=== PATIENT | female | born 1990 ===

== ENCOUNTER 2016-06-20 20:59 | Observation (INO) | payer MEDICAID, OTHER ==
[2016-06-20 21:15] VITALS: BMI 26.5
[2016-06-20] MEDS ORDERED: Sodium Chloride 0.9% 1,000 ML IV STA (21:25)
--- NOTE | 2016-06-20 21:29 | ED PDOC ---
HPI: Abdomen Time Seen by Provider: 06/20/16 21:18 Chief Complaint (Nursing): Abdominal Pain Chief Complaint (Provider): abdominal pain History Per: Patient History/Exam Limitations: no limitations Onset/Duration Of Symptoms: Days (1 week) Current Symptoms Are (Timing): Still Present Location Of Pain/Discomfort: Epigastric Associated Symptoms: Nausea, Vomiting Additional History Per: Patient Additional Complaint(s): 25 y/o female history of asthma, gastritis presents with abdominal pain x 1 week. Associated nausea/vomiting. Patient states symptoms worsened today after trying to eat dumplings at work, which prompted ED visit. Denies fever, chest pain, shortness of breath, palpitations, changes in bowel movements, vaginal bleeding/discharge, dysuria, hematuria. LMP 1 week ago. Past Medical History Reviewed: Historical Data, Nursing Documentation, Vital Signs Vital Signs: Last Vital Signs Temp 99.6 F 06/21/16 05:37 Pulse 115 H 06/21/16 05:37 Resp 16 06/21/16 05:37 BP 119/78 06/21/16 05:37 Pulse Ox 100 06/21/16 05:49 - Medical History PMH: Anxiety, Depression, Gastritis Denies: Diabetes, Hepatitis, HIV, HTN, Chronic Kidney Disease, Seizures, Sexually Transmitted Disease - Surgical History Surgical History: No Surg Hx - Family History Family History: States: Unknown Family Hx - Home Medications Home Medications: Ambulatory Orders Medication Instructions Recorded Cyclobenzaprine [Flexeril] 5 mg PO TID PRN #30 tab 06/16/15 Mirtazapine [Remeron] 15 mg PO HS #30 tab 06/16/15 DiphenhydrAMINE [Benadryl] 25 mg PO Q4H #20 cap 07/09/15 Prednisone 20 mg PO BID #8 tablet 07/09/15 - Allergies Allergies/Adverse Reactions: Allergies Allergy/AdvReac Type Severity Reaction Status Date / Time apple Allergy SWELLING Verified 06/20/16 21:14 avocado Allergy RASH Verified 06/20/16 21:14 Review of Systems ROS Statement: Except As Marked, All Systems Reviewed And Found Negative Gastrointestinal: Positive for: Nausea, Vomiting, Abdominal Pain Physical Exam - Reviewed Nursing Documentation Reviewed: Yes Vital Signs Reviewed: Yes - Physical Exam Appears: Positive for: Well, Non-toxic, Uncomfortable (hypervenitallting, crying ) Skin: Positive for: Normal Color Eye Exam: Positive for: Normal appearance ENT: Positive for: Normal ENT Inspection Cardiovascular/Chest: Positive for: Regular Rate, Rhythm Respiratory: Positive for: Normal Breath Sounds Gastrointestinal/Abdominal: Positive for: Bowel Sounds, Soft, Tenderness ( diffuse; worse epigastric). Negative for: Rebound Pelvic Exam: Positive for: External Exam Normal, No Cerv. Motion Tender. Negative for: Active Bleeding Back: Positive for: Normal Inspection Extremity: Positive for: Normal ROM Neurologic/Psych: Positive for: Alert, Oriented - Laboratory Results Result Diagrams: 06/20/16 21:40 06/20/16 21:40 - ECG ECG: Positive for: Viewed By Me (reviewed by ED attending) ECG Rhythm: Positive for: Sinus Tachycardia O2 Sat by Pulse Oximetry: 100 Pulse Ox Interpretation: Normal - Radiology X-Ray: Viewed By Me X-Ray Interpretation: No Acute Disease - Progress ED Course And Treament: labs, urine, CT abd/pelvis, IV fluids, IV zofran, IV pepcid IV ativan given for anxious EXAM: CT Abdomen and Pelvis With Intravenous Contrast CLINICAL HISTORY: The patient is a 25 years female; Pain; Abdominal pain; Generalized; Additional info: Abd pain, vomiting 06/20/2016 11:22 PM TECHNIQUE: Axial computed tomography images of the abdomen and pelvis with intravenous contrast. This CT exam was performed using one or more of the following dose reduction techniques : automated exposure control, adjustment of the mA and/or kV according to patient size, and/ or use of iterative reconstruction technique. Coronal and sagittal reformatted images were created and reviewed. CONTRAST: 90 mL of [id number] administered intravenously. COMPARISON: CT ABD 01/06/2013 5:40:00 PM FINDINGS: Lower thorax: <No significant pleural effusions.> ABDOMEN: Liver: Unremarkable. No mass. Gallbladder and bile ducts: Unremarkable. No calcified stones. No ductal dilation. Pancreas: Unremarkable. No ductal dilation. Spleen: Unremarkable. No splenomegaly. Adrenals: Unremarkable. No mass. Kidneys and ureters: Unremarkable. No solid mass. No hydronephrosis. Stomach and bowel: Unremarkable. No dilated bowel loops. Appendix: No findings to suggest acute appendicitis. PELVIS: Bladder: Urinary bladder is partially contracted with apparent wall thickening, probably exaggerated by under distention. Correlate for possible cystitis. Reproductive: 4.8 cm complex appearing right adnexal lesion/ovary. Correlate with pelvic ultrasound. ABDOMEN and PELVIS: Intraperitoneal space: Unremarkable. No free air. No significant fluid collection. Bones/joints: No acute fracture. No dislocation. Soft tissues: Unremarkable. Vasculature: Unremarkable. No abdominal aortic aneurysm. Lymph nodes: Unremarkable. No enlarged lymph nodes. IMPRESSION: 1. 4.8 cm complex appearing right adnexal lesion/ovary. Correlate with pelvic ultrasound. 2. Urinary bladder is partially contracted with apparent wall thickening, probably exaggerated by under distention. Correlate for possible cystitis. EXAM: US Pelvis, Transvaginal CLINICAL HISTORY: 25 years old, female; Pain; Abdominal pain; Lower abdomen; Additional info: Dx: Abdominal pain R/O torsion TECHNIQUE: Real-time transvaginal pelvic ultrasound (complete) with image documentation. Transvaginal imaging was used for better evaluation of the endometrium and adnexa. COMPARISON: CT - ABD PELVIS PO IV CON 06/21/2016 1:27:22 AM FINDINGS: Uterus/cervix: 1.3 x 1.3 x 0.6 cm heterogeneous area in the endometrial canal with small echogenic foci noted. The appearance is nonspecific. No abnormal blood flow in the endometrial canal. Endometrial stripe measures 8 mm in thickness. Right ovary: Unremarkable. No mass. Normal blood flow. Left ovary: Unremarkable. No mass. Normal blood flow. Free fluid: No free fluid. IMPRESSION: 1.3 x 1.3 x 0.6 cm heterogeneous area in the endometrial canal with small echogenic foci noted. The appearance is nonspecific. No abnormal blood flow in the endometrial canal. Ultrasound followup could be obtained if indicated. Thank you for allowing us to participate in the care of your patient Patient vomited after u/s; IV zofran, IV fluids 5:40 Patient still with nausea. HR 115 after IV fluid boluses and IV ativan given. Case discussed with Dr. Amezcua for placement in observation status for IV hydration, requesting GI consult with Dr. Arciniega. Disposition - Clinical Impression Clinical Impression: Intractable nausea and vomiting, Tachycardia, Dehydration - Disposition Disposition Time: 06:00 Condition: FAIR
[2016-06-20 21:43] LABS: BASO % 0.2 % (0.0-2.0); EOS # 0.1 K/uL (0.0-0.7); EOS % 0.4 % (0.0-4.0); HEMATOCRIT 44.8 % (34.0-47.0); LYMPH # 0.6 K/uL (1.0-4.3); LYMPH % 4.6 % (20.0-40.0); MEAN CELL VOLUME 90.4 fl (81.0-99.0); MEAN CORPUSCULAR HEMOGLOBIN 30.2 pg (27.0-31.0); MEAN CORPUSCULAR HGB CONC 33.3 g/dL (33.0-37.0); MEAN PLATELET VOLUME 7.7 fl (7.2-11.7); MONO # 0.3 K/uL (0.0-0.8); MONO % 2.4 % (0.0-10.0); NEUT # 12.2 K/uL (1.8-7.0); NEUT % 92.4 % (50.0-75.0); PLATELET COUNT 294 K/uL (130-400); RED CELL DISTRIBUTION WIDTH 13.4 % (11.5-14.5); WHITE BLOOD COUNT 13.3 K/uL (4.8-10.8)
[2016-06-20 21:55] LABS: ALKALINE PHOSPHATASE 83 U/L (38-126); ALT/SGPT 31 U/L (9-52); AST/SGOT 30 U/L (14-36); BILIRUBIN,TOTAL 0.6 mg/dl (0.2-1.3); BLOOD UREA NITROGEN 14 mg/dl (7-17); CALCIUM 10.2 mg/dL (8.4-10.2); CARBON DIOXIDE 21 mmol/L (22-30); CHLORIDE 102 mmol/L (98-107); GFR AFRICAN-AMERICAN > 60; GLUCOSE,RANDOM 112 mg/dL (65-105); LIPASE 37 U/L (23-300); POTASSIUM 4.3 MMOL/L (3.6-5.0); SODIUM 141 mmol/l (132-148); TOTAL PROTEIN 8.7 G/DL (6.3-8.2)
[2016-06-20 21:56] LABS: ALB/GLOB RATIO 1.4 (1.0-2.1)
[2016-06-20 22:26] LABS: NEUTROPHIL 88 % (42-75); TOTAL CELLS COUNTED 100
[2016-06-20] MEDS ORDERED: Iohexol 240 (50 ml) PO ONE (23:22)
[2016-06-21] MEDS ORDERED: Sodium Chloride 0.9% 50 ML IV ONE (01:09)
[2016-06-21] MEDS ORDERED: Iohexol 300 100 ML IJ ONE (01:09)
[2016-06-21 03:43] LABS: URINE BILIRUBIN NEGATIVE (NEGATIVE); URINE BLOOD NEGATIVE (NEGATIVE); URINE COLOR YELLOW (YELLOW); URINE GLUCOSE (UA) NEGATIVE (Normal); URINE KETONE 80 mg/dL (NEGATIVE); URINE PROTEIN NEGATIVE (NEGATIVE)
[2016-06-21 03:44] LABS: RBC URINE 4 /hpf (0-3); URINE LEUKOCYTE ESTERASE NEGATIVE Leu/uL (Negative); URINE UROBILINOGEN 0.2 mg/dL (0.2-1.0); WBC URINE 1 /hpf (0-5)
[2016-06-21] MEDS ORDERED: Sodium Chloride 0.9% 1,000 ML IV STA (04:08)
[2016-06-21 06:06] LABS: VENOUS BLOOD GAS BASE EXCESS -10.4 mmol/L (0.0-2.0); VENOUS BLOOD GAS PCO2 50 mmHg (40-60); VENOUS BLOOD PH 7.17 (7.32-7.43)
--- NOTE | 2016-06-21 07:11 | CP.PCM.HP ---
History of Present Illness - History of Present Illness History of Present Illness: evaluated with attending 25yo F with PMHx asthma, PCOS admitted for intractatble nausea/vomiting. N/V x1 week, LMP 1 week ago, pt attributed N/V to menses but has not improved. decreased PO intake, last attempted PO intake yesterday, a/w generalized abd pain after vomiting. Denies prior abd surgeries. Follows with [facility] for PCOS and on control which was last taken 1 month ago and pt not consistent with. PMHx: as above SHx: denies Allergies: NKDA Social hx: smoker / ppd. denies EtOH, drugs Present on Admission - Present on Admission Any Indicators Present on Admission: No Review of Systems - Constitutional Constitutional: absent: Chills, Fever - Cardiovascular Cardiovascular: absent: Chest Pain - Respiratory Respiratory: absent: Dyspnea - Gastrointestinal Gastrointestinal: Abdominal Pain, Nausea, Vomiting. absent: Diarrhea, Hematemesis - Genitourinary Genitourinary: absent: Dysuria, Hematuria - Musculoskeletal Musculoskeletal: absent: Back Pain - Neurological Neurological: absent: Headaches Past Patient History - Infectious Disease Hx of Infectious Diseases: None - Tetanus Immunizations Tetanus Immunization: Unknown - Past Social History Smoking Status: Light Smoker < 10 Cigarettes Daily - CARDIAC Hx Hypertension: No - PULMONARY Hx Respiratory Disorders: No - NEUROLOGICAL Hx Seizures: No - HEENT Hx HEENT Problems: No - RENAL Hx Chronic Kidney Disease: No - ENDOCRINE/METABOLIC Hx Endocrine Disorders: No - HEMATOLOGICAL/ONCOLOGICAL Hx Human Immunodeficiency Virus (HIV): No - INTEGUMENTARY Hx Dermatological Problems: No - MUSCULOSKELETAL/RHEUMATOLOGICAL Hx Musculoskeletal Disorders: Yes Hx Back Pain: Yes Hx Herniated Disk: Yes - GASTROINTESTINAL Hx Gastritis: Yes - GENITOURINARY/GYNECOLOGICAL Hx Sexually Transmitted Disorders: No - PSYCHIATRIC Hx Anxiety: Yes Hx Depression: Yes - SURGICAL HISTORY Hx Surgeries: No - ANESTHESIA Hx Anesthesia: No Meds Allergies/Adverse Reactions: Allergies Allergy/AdvReac Type Severity Reaction Status Date / Time apple Allergy SWELLING Verified 06/20/16 21:14 avocado Allergy RASH Verified 06/20/16 21:14 Physical Exam - Constitutional Appears: Non-toxic, No Acute Distress - Head Exam Head Exam: ATRAUMATIC, NORMAL INSPECTION - Eye Exam Eye Exam: Normal appearance - ENT Exam ENT Exam: Mucous Membranes Dry - Neck Exam Neck exam: Positive for: Normal Inspection - Respiratory Exam Respiratory Exam: Clear to Auscultation Bilateral - Cardiovascular Exam Cardiovascular Exam: REGULAR RHYTHM - GI/Abdominal Exam GI & Abdominal Exam: Hypoactive Bowel Sounds, Soft, Tenderness (RUQ). absent: Distended, Firm, Guarding, Rebound, Rigid - Extremities Exam Extremities exam: Positive for: normal inspection - Back Exam Back exam: NORMAL INSPECTION - Neurological Exam Neurological exam: Alert, Oriented x3 - Skin Skin Exam: Dry, Warm Results - Vital Signs Recent Vital Signs: Last Vital Signs Temp 99.6 F 06/21/16 05:37 Pulse 115 H 06/21/16 05:37 Resp 16 06/21/16 05:37 BP 119/78 06/21/16 05:37 Pulse Ox 100 06/21/16 06:01 - Labs Result Diagrams: 06/20/16 21:40 06/21/16 08:19 Assessment & Plan - Assessment and Plan (Free Text) Assessment: 25yo F with PMHx asthma, PCOS admitted for intractatble nausea/vomiting intractatble nausea/vomiting -CT abd/pelvis: 4.8cm complex right adnexal/ovarian lesion -TVUS: heterogenous focia in endometrial canal, normal blood flow -MIVF NS 100cc/hr -zofran -ibuprfen -IV pepcid -GI c/s, appreciate input -US abd, r/o cholecystitis dehydration -MIVF NS 100cc/hr tachycardia -d/t dehydration -MIVF NS 100cc/hr -can bolus with NS if not improved asthma -c/w home med -albuterol prn PCOS -hold on starting control as pt noncompliant, will restart as outpt -HgbA1c DVT ppx -SCDs Decision To Admit - Pt Status Changed To: Hospital Disposition Of: Observation - . Bed Request Type: Med/Surg Admitting Physician: Stevo Amezcua
[2016-06-21] MEDS ORDERED: Albuterol 0.083% Inhal Sol (2.5 mg/3 mL) UD INH PRN (08:10)
[2016-06-21 08:58] LABS: ALB/GLOB RATIO 1.2 (1.0-2.1); ALKALINE PHOSPHATASE 52 U/L (38-126); ALT/SGPT 25 U/L (9-52); AST/SGOT 20 U/L (14-36); BILIRUBIN,TOTAL 0.3 mg/dl (0.2-1.3); BLOOD UREA NITROGEN 7 mg/dl (7-17); CALCIUM 7.9 mg/dL (8.4-10.2); CARBON DIOXIDE 21 mmol/L (22-30); CHLORIDE 108 mmol/L (98-107); GFR AFRICAN-AMERICAN > 60; GLUCOSE,RANDOM 108 mg/dL (65-105); POTASSIUM 3.4 MMOL/L (3.6-5.0); SODIUM 137 mmol/l (132-148); TOTAL PROTEIN 5.9 G/DL (6.3-8.2)
[2016-06-21 09:21] LABS: THYROID STIMULATING HORMONE 0.55 mIU/ML (0.46-4.68)
--- NOTE | 2016-06-21 09:26 | CT ---
PROCEDURE: CT Abdomen and Pelvis with contrast HISTORY: abd pain, vomiting COMPARISON: None. TECHNIQUE: Contrast dose: 100 cc of Omnipaque 300 Radiation dose: Total exam DLP = 479 mGy-cm. This CT exam was performed using one or more of the following dose reduction techniques: Automated exposure control, adjustment of the mA and/or kV according to patient size, and/or use of iterative reconstruction technique. FINDINGS: LOWER THORAX: Unremarkable. LIVER: Unremarkable. No gross lesion or ductal dilatation. GALLBLADDER AND BILE DUCTS: Unremarkable. PANCREAS: Unremarkable. No gross lesion or ductal dilatation. SPLEEN: Unremarkable. ADRENALS: Unremarkable. No mass. KIDNEYS AND URETERS: Unremarkable. No hydronephrosis. No solid mass. VASCULATURE: Unremarkable. No aortic aneurysm. BOWEL: Unremarkable. No obstruction. No gross mural thickening. APPENDIX: Normal appendix. PERITONEUM: Unremarkable. No free fluid. No free air. LYMPH NODES: Unremarkable. No enlarged lymph nodes. BLADDER: Unremarkable. REPRODUCTIVE: 4.8 centimeter complex right ovarian cyst/cystic lesion; recommend correlation with pelvic ultrasound.. BONES: No acute fracture. OTHER FINDINGS: None. IMPRESSION: 4.8 centimeter complex right ovarian cyst/cystic lesion; recommend correlation with pelvic ultrasound..
[2016-06-21 09:36] LABS: BASO % 0.1 % (0.0-2.0); EOS % 0.3 % (0.0-4.0); HEMATOCRIT 36.6 % (34.0-47.0); LYMPH # 0.6 K/uL (1.0-4.3); LYMPH % 9.6 % (20.0-40.0); MEAN CELL VOLUME 91.1 fl (81.0-99.0); MEAN CORPUSCULAR HEMOGLOBIN 30.1 pg (27.0-31.0); MEAN PLATELET VOLUME 7.8 fl (7.2-11.7); MONO # 0.4 K/uL (0.0-0.8); MONO % 5.5 % (0.0-10.0); NEUT # 5.5 K/uL (1.8-7.0); NEUT % 84.5 % (50.0-75.0); NRBC % 0.1 % (0.0-0.0); RED CELL DISTRIBUTION WIDTH 13.5 % (11.5-14.5); WHITE BLOOD COUNT 6.5 K/uL (4.8-10.8)
[2016-06-21 10:11] LABS: ALB/GLOB RATIO 1.2 (1.0-2.1); ALKALINE PHOSPHATASE 51 U/L (38-126); ALT/SGPT 24 U/L (9-52); AST/SGOT 20 U/L (14-36); BILIRUBIN,TOTAL 0.3 mg/dl (0.2-1.3); BLOOD UREA NITROGEN 7 mg/dl (7-17); CALCIUM 8.1 mg/dL (8.4-10.2); CARBON DIOXIDE 22 mmol/L (22-30); CHLORIDE 106 mmol/L (98-107); GFR AFRICAN-AMERICAN > 60; GLUCOSE,RANDOM 101 mg/dL (65-105); POTASSIUM 3.6 MMOL/L (3.6-5.0); SODIUM 136 mmol/l (132-148); TOTAL PROTEIN 6.2 G/DL (6.3-8.2)
--- NOTE | 2016-06-21 10:32 | US ---
PROCEDURE: HISTORY: DX: Abdominal Pain R/O Torsion COMPARISON: None TECHNIQUE: FINDINGS: The uterus measures 7.1 x 4.7 x 2.9 centimeters. The endometrium measures 8 millimeters. There is a heterogeneous region within the endometrium measuring 1.3 x 1.2 x 0.5 centimeters. The right ovary measures 4.4 x 5.4 x 2.3 centimeters. The left ovary measures 3.9 x 2.5 x 1.9 centimeters. There is minimal free fluid in the pelvis. IMPRESSION: Suspect endometrial polyp.
--- NOTE | 2016-06-21 11:14 | RAD ---
HISTORY: fever COMPARISON: Chest x-ray performed 02/12/14 TECHNIQUE: Chest, one view. FINDINGS: LUNGS: No focal consolidation. 6 mm rounded density in the right lung apex, possibly nodule. Nodular density at the left lung base, likely nipple shadow. Please note that chest x-ray has limited sensitivity for the detection of pulmonary masses. PLEURA: No significant pleural effusion identified. No definite pneumothorax . CARDIOVASCULAR: The cardiomediastinal silhouette appears within normal limits of size. OSSEOUS STRUCTURES: No acute osseous abnormality identified. VISUALIZED UPPER ABDOMEN: Unremarkable. OTHER FINDINGS: None. IMPRESSION: 6 mm rounded density in the right lung apex, possibly nodule. Further evaluation may be considered with outpatient CT of the chest if indicated. Study has been marked for PA review.
[2016-06-21] MEDS: Fluticasone-Salmeterol 250-50mcg Diskus INH SCH (11:25)
[2016-06-21] MEDS: Sodium Chloride 0.9% 1,000 ML IV SCH ×3 (11:26→21:38)
[2016-06-21] MEDS: Potassium CL 10mEq/100ml 100 ML IVPB SCH ×2 (11:27→12:37)
--- NOTE | 2016-06-21 11:48 | US ---
HISTORY: r/o cholecystitis COMPARISON: None. TECHNIQUE: Sonographic evaluation of the right upper quadrant of the abdomen. FINDINGS: LIVER: Measures cm in length. Normal echogenicity of the liver parenchyma. No mass. No intrahepatic bile duct dilatation. GALLBLADDER: Unremarkable. No gallstones. COMMON BILE DUCT: Measures mm. No stones. No dilatation. PANCREAS: Unremarkable as visualized. No mass. No ductal dilatation. RIGHT KIDNEY: Measures cm in length. Normal echogenicity. No calculus, mass, or hydronephrosis. AORTA: No aneurysmal dilatation. IVC: Unremarkable. OTHER FINDINGS: None . IMPRESSION: Unremarkable exam.
--- NOTE | 2016-06-21 13:07 | CP.PCM.CON ---
History of Present Illness - History of Present Illness History of Present Illness: CC: Vomiting HPI: 25 year old female with h/o asthma, PCOS admitted with vomiting. She reports that the vomiting originally started about a week ago. She thought it was related to her period. It was mild and intermittent. Yesterday, she decided to eat three pork dumplings. Shortly thereafter, she developed abdominal pain and more vomiting. She says that she vomitted several times. She had a couple episodes of diarrhea. The pain was periumbilical diffuse and moderate in severity. She denies rectal bleeding, chest pain or sob. She has had intermittent vomiting symptoms from time to time. Prior egd > 1 year ago, just gastritis. PMhx: PCOS, Asthma PSHx Denies SHX smokes 1/4 ppd, denies etoh/drugs FHx no gi family history ROS A comprehesive review of systems was performed and was negative apart from HPI Past Patient History - Infectious Disease Hx of Infectious Diseases: None - Tetanus Immunizations Tetanus Immunization: Unknown - Past Medical History & Family History Past Medical History?: Yes - Past Social History Smoking Status: Light Smoker < 10 Cigarettes Daily - CARDIAC Hx Hypertension: No - PULMONARY Hx Respiratory Disorders: No - NEUROLOGICAL Hx Seizures: No - HEENT Hx HEENT Problems: No - RENAL Hx Chronic Kidney Disease: No - ENDOCRINE/METABOLIC Hx Endocrine Disorders: No - HEMATOLOGICAL/ONCOLOGICAL Hx Human Immunodeficiency Virus (HIV): No - INTEGUMENTARY Hx Dermatological Problems: No - MUSCULOSKELETAL/RHEUMATOLOGICAL Hx Musculoskeletal Disorders: Yes Hx Back Pain: Yes Hx Herniated Disk: Yes - GASTROINTESTINAL Hx Gastritis: Yes - GENITOURINARY/GYNECOLOGICAL Hx Sexually Transmitted Disorders: No - PSYCHIATRIC Hx Anxiety: Yes Hx Depression: Yes - SURGICAL HISTORY Hx Surgeries: No - ANESTHESIA Hx Anesthesia: No Meds Allergies/Adverse Reactions: Allergies Allergy/AdvReac Type Severity Reaction Status Date / Time apple Allergy SWELLING Verified 06/20/16 21:14 avocado Allergy RASH Verified 06/20/16 21:14 - Medications Medications: Current Medications Acetaminophen (Tylenol 325mg Tab) 650 mg PO Q6 PRN PRN Reason: Headache Albuterol Sulfate (Albuterol 0.083% Inhal Argenis (2.5 Mg/3 Ml) Ud) 2.5 mg INH RQ6 PRN PRN Reason: Shortness of Breath Famotidine (Pepcid) 20 mg IVP DAILY [facility] Sodium Chloride (Sodium Chloride 0.9%) 1,000 mls @ 1,000 mls/hr IV .Q1H [facility] Stop: 06/22/16 05:59 Sodium Chloride (Sodium Chloride 0.9%) 1,000 mls @ 100 mls/hr IV .Q10H [facility] Stop: 06/22/16 07:15 Last Admin: 06/21/16 11:26 Dose: 100 mls/hr Ibuprofen (Motrin Tab) 600 mg PO PRN PRN PRN Reason: Pain, moderate (4-7) Last Admin: 06/21/16 11:25 Dose: 600 mg Ondansetron HCl (Zofran Inj) 4 mg IVP Q4 PRN PRN Reason: Nausea/Vomiting Fluticasone/Salmeterol (Advair Diskus 250/50) 1 puff INH DAILY [facility] Last Admin: 06/21/16 11:25 Dose: 1 puff Physical Exam - Constitutional Appears: Well, No Acute Distress - Head Exam Head Exam: ATRAUMATIC, NORMOCEPHALIC - Eye Exam Eye Exam: Normal appearance. absent: Scleral icterus Pupil Exam: PERRL - ENT Exam ENT Exam: Mucous Membranes Moist, Normal Oropharynx - Neck Exam Neck exam: Negative for: Lymphadenopathy, Thyromegaly - Respiratory Exam Respiratory Exam: Clear to Auscultation Bilateral, NORMAL BREATHING PATTERN. absent: Wheezes, Respiratory Distress - Cardiovascular Exam Cardiovascular Exam: REGULAR RHYTHM, +S1, +S2 - GI/Abdominal Exam GI & Abdominal Exam: Soft. absent: Distended, Guarding, Tenderness - Extremities Exam Extremities exam: Positive for: normal capillary refill. Negative for: pedal edema - Neurological Exam Neurological exam: Alert, Normal Gait, Oriented x3 - Psychiatric Exam Psychiatric exam: Normal Affect, Normal Mood - Skin Skin Exam: Dry, Normal Color, Warm Results - Vital Signs Recent Vital Signs: Last Vital Signs Temp 99.2 F 06/21/16 12:11 Pulse 120 H 06/21/16 12:11 Resp 20 06/21/16 12:11 BP 112/73 06/21/16 12:11 Pulse Ox 99 06/21/16 12:11 - Labs Result Diagrams: 06/21/16 07:00 06/21/16 09:54 Labs: Laboratory Results - last 24 hr 06/21/16 06/21/16 06/21/16 07:00 08:19 09:54 WBC 6.5 D RBC 4.02 Hgb 12.1 D Hct 36.6 MCV 91.1 MCH 30.1 MCHC 33.0 RDW 13.5 Plt Count 213 MPV 7.8 Neut % (Auto) 84.5 H Lymph % (Auto) 9.6 L Holt % (Auto) 5.5 Eos % (Auto) 0.3 Baso % (Auto) 0.1 Neut # 5.5 Lymph # 0.6 L Holt # 0.4 Eos # 0.0 Baso # 0.0 Sodium 137 136 Potassium 3.4 L 3.6 Chloride 108 H 106 Carbon Dioxide 21 L 22 Anion Gap 11 11 BUN 7 7 Creatinine 0.6 L 0.8 Est GFR ( Amer) > 60 > 60 Est GFR (Non-Af Amer) > 60 > 60 Random Glucose 108 H 101 Calcium 7.9 L 8.1 L Total Bilirubin 0.3 0.3 AST 20 20 ALT 25 24 Alkaline Phosphatase 52 51 Total Protein 5.9 L 6.2 L Albumin 3.2 L D 3.4 L Globulin 2.6 2.8 Albumin/Globulin Ratio 1.2 1.2 TSH 3rd Generation 0.55 Assessment & Plan - Assessment and Plan (Free Text) Assessment: 25 year old female with h/o PCOS, asthmas admitted with nausea and vomiting. 1. Gastroenteritis Plan: -likely viral/infectious gastroenteritis, possibly precipitated by food ingestion -CT scan reviewed -labs are ok -Recommend supportive measures -IV hydration/electrolyte replacement -zofran as needed -ppi daily -clear liquids and advance as tolerated -has had prior egd in the past - Date & Time Date: 06/21/16 Time: 13:07
--- NOTE | 2016-06-21 16:10 | CARD ---
APPROVED REPORT EKG Measurement Heart [id number] <Conclusion> Sinus tachycardia Nonspecific T wave abnormality Abnormal ECG
[2016-06-22 07:29] LABS: ALB/GLOB RATIO 1.2 (1.0-2.1); ALKALINE PHOSPHATASE 51 U/L (38-126); ALT/SGPT 26 U/L (9-52); AST/SGOT 20 U/L (14-36); BILIRUBIN,TOTAL 0.1 mg/dl (0.2-1.3); BLOOD UREA NITROGEN 5 mg/dl (7-17); CALCIUM 8.5 mg/dL (8.4-10.2); CARBON DIOXIDE 23 mmol/L (22-30); CHLORIDE 110 mmol/L (98-107); GFR AFRICAN-AMERICAN > 60; GLUCOSE,RANDOM 83 mg/dL (65-105); POTASSIUM 4.3 MMOL/L (3.6-5.0); SODIUM 141 mmol/l (132-148)
[2016-06-22] MEDS: Fluticasone-Salmeterol 250-50mcg Diskus INH SCH (09:00)
[2016-06-22 19:47] LABS: HEMATOCRIT 34.8 % (34.0-47.0); MEAN CELL VOLUME 92.8 fl (81.0-99.0); MEAN CORPUSCULAR HGB CONC 32.3 g/dL (33.0-37.0); RED CELL DISTRIBUTION WIDTH 13.5 % (11.5-14.5); WHITE BLOOD COUNT 5.1 K/uL (4.8-10.8)
[2016-06-23] MEDS: Sodium Chloride 0.9% 1,000 ML IV SCH ×3 (02:21→02:31)
[2016-06-23 05:03] VITALS: O2SAT 100
[2016-06-23] MEDS: Fluticasone-Salmeterol 250-50mcg Diskus INH SCH (08:25)
--- NOTE | 2016-06-23 09:54 | PN ---
DATE: 06/23/2016 SUBJECTIVE: The patient seen and examined. Interim events noted. The patient remains in progressiv e care unit. The patient feels okay, had one episode of vomiting, but no chest pain or shortness of breath. very well. Wants to go home. PHYSICAL EXAMINATION: GENERAL: The patient is in no acute distress. VITAL SIGNS: Stable. HEART: S1, S2 normal, regular. LUNGS: Good bilateral air entry. ABDOMEN: Soft, nontender. No organomegaly. No fluid. Bowel sounds are plus. No sign of acute abd omen. No guarding, no rigidity, no rebound. EXTREMITIES: No edema, no calf swelling, no tenderness, no acute ischemia. CENTRAL NERVOUS SYSTEM: Essentially unchanged. DIAGNOSTIC DATA: Available diagnostic data reviewed. ASSESSMENT AND PLAN: Overall, patient's general condition is medically stable for discharge the [facility] ent home. The patient will followed by primary care physician, Dr. Parra. Case and plan discusse d with patient. Stevo Amezcua MD cc: [id number] TT: 06/23/2016 09:53:14 Confirmation # [id number] Dictation # [id number]
--- NOTE | 2016-06-23 10:42 | CP.PCM.PN ---
Subjective - Date & Time of Evaluation Date of Evaluation: 06/23/16 Time of Evaluation: 08:30 - Subjective Subjective: Patient seen at bedside. Got zofran this am but has no episodes of vomiting since yesterday. Ate chicken yesterday. No diarrhea or abdominal pain Objective - Vital Signs/Intake and Output Vital Signs (last 24 hours): Temp Pulse Resp BP Pulse Ox 98.2 F 73 20 121/70 100 06/23/16 08:30 06/23/16 08:30 06/23/16 08:30 06/23/16 08:30 06/23/16 08:30 - Medications Medications: Current Medications Acetaminophen (Tylenol 325mg Tab) 650 mg PO Q6 PRN PRN Reason: Headache Albuterol Sulfate (Albuterol 0.083% Inhal Argenis (2.5 Mg/3 Ml) Ud) 2.5 mg INH RQ6 PRN PRN Reason: Shortness of Breath Famotidine (Pepcid) 20 mg IVP DAILY [facility] Last Admin: 06/23/16 08:24 Dose: 20 mg Ibuprofen (Motrin Tab) 600 mg PO PRN PRN PRN Reason: Pain, moderate (4-7) Last Admin: 06/22/16 23:20 Dose: 600 mg Nicotine (Nicoderm Cq) 1 patch TD DAILY [facility] Last Admin: 06/23/16 08:25 Dose: 1 patch Ondansetron HCl (Zofran Inj) 4 mg IVP Q4 PRN PRN Reason: Nausea/Vomiting Last Admin: 06/23/16 08:25 Dose: 4 mg Fluticasone/Salmeterol (Advair Diskus 250/50) 1 puff INH DAILY [facility] Last Admin: 06/23/16 08:25 Dose: 1 puff - Labs Labs: 06/22/16 04:00 06/22/16 04:00 - Constitutional Appears: Well, Non-toxic, No Acute Distress - Head Exam Head Exam: ATRAUMATIC, NORMAL INSPECTION, NORMOCEPHALIC - Eye Exam Eye Exam: EOMI, Normal appearance, PERRL - ENT Exam ENT Exam: Mucous Membranes Moist, Normal Exam - Respiratory Exam Respiratory Exam: Clear to Ausculation Bilateral, NORMAL BREATHING PATTERN - Cardiovascular Exam Cardiovascular Exam: REGULAR RHYTHM, +S1, +S2. absent: Murmur - GI/Abdominal Exam GI & Abdominal Exam: Soft, Normal Bowel Sounds. absent: Tenderness - Extremities Exam Extremities Exam: Full ROM, Normal Capillary Refill, Normal Inspection. absent : Joint Swelling, Pedal Edema - Neurological Exam Neurological Exam: Alert, Awake, CN II-XII Intact, Normal Gait, Oriented x3 - Psychiatric Exam Psychiatric exam: Normal Affect, Normal Mood Assessment and Plan - Assessment and Plan (Free Text) Assessment: 25 year old female with h/o PCOS, asthmas admitted with nausea and vomiting. 1. Gastroenteritis Plan: -likely viral/infectious gastroenteritis, possibly precipitated by food ingestion -CT scan reviewed -labs are ok -Recommend supportive measures -discontinue IV -ppi daily -has had prior egd in the past - C diff negative and diarrhea resolved - Tolerating regular diet - Can be discharged to home
[2016-06-23 12:55] VITALS: BP 113/76; PULSE 101; RESP 18; TEMP 98.5
== END 2016-06-23 13:04 | disposition home or self-care (01) ==
LOC: H.ER 20:59 → H.ERHOLD 06-21 05:58 → H.TEL 06-21 07:45
PROVIDERS: ADMIT Internal Medicine; ATTEND Internal Medicine
DX: K52.9 Noninfective gastroenteritis and colitis, unspecified (principal); E86.0 Dehydration; E28.2 Polycystic ovarian syndrome; J45.909 Unspecified asthma, uncomplicated; K29.70 Gastritis, unspecified, without bleeding; F41.9 Anxiety disorder, unspecified; F32.9 Major depressive disorder, single episode, unspecified; R00.0 Tachycardia, unspecified; Z91.018 Allergy to other foods

== ENCOUNTER 2016-09-27 16:05 | Observation (INO) | payer OTHER ==
[2016-09-27 16:06] VITALS: BMI 26.5
[2016-09-27 16:29] VITALS: BP 129/65; PULSE 80; RESP 18; TEMP 99.1; O2SAT 99
--- NOTE | 2016-09-27 16:57 | ED PDOC ---
HPI: General Adult Time Seen by Provider: 09/27/16 16:27 Chief Complaint (Nursing): GI Problem History Per: Patient Additional Complaint(s): Pt. states for the past week she's had R sided pelvic pain associated with 2 week hx of non-bloody vomiting and constant nausea. Also reports having non- radiating epigastric pain x 2 weeks. Also states that that her menstruation is late. LMP 08/08/2016. Denies hematemesis, diarrhea, melena, hematochezia, BRBPR, dysuria, hematuria, fever, vaginal bleeding, vaginal discharge. Past Medical History Reviewed: Historical Data, Nursing Documentation, Vital Signs Vital Signs: Last Vital Signs Temp 99.1 F 09/27/16 16:26 Pulse 80 09/27/16 16:26 Resp 18 09/27/16 16:26 BP 129/65 09/27/16 16:26 Pulse Ox 99 09/27/16 19:58 - Medical History PMH: Anxiety, Asthma, Depression, Gastritis Denies: Diabetes, Hepatitis, HIV, HTN, Chronic Kidney Disease, Seizures, Sexually Transmitted Disease - Family History Family History: States: No Known Family Hx - Home Medications Home Medications: Ambulatory Orders Medication Instructions Recorded Budesonide/Formoterol Fumarate 1 puff PO DAILY 06/21/16 [Symbicort 160-4.5 Mcg Inhaler] Ethinyl Estradiol/Drospirenone 1 tab PO DAILY 06/21/16 [Aleshia 28 Tablet] Pantoprazole [Protonix] 40 mg PO DAILY #30 ect 06/23/16 Doxylamine/Pyridoxine HCl (B6) 1 - 2 tab PO HS PRN #30 tablet. 09/27/16 [Garcia Hutchinson 10-10 mg Tablet] Multivit/Folic Acid/I 1 tab PO DAILY #30 tab 09/27/16 [ Plus] - Allergies Allergies/Adverse Reactions: Allergies Allergy/AdvReac Type Severity Reaction Status Date / Time avocado Allergy RASH Verified 06/20/16 21:14 fresh fruit Allergy SWELLING Uncoded 06/21/16 13:29 Review of Systems ROS Statement: Except As Marked, All Systems Reviewed And Found Negative Genitourinary Female: Positive for: Pelvic Pain Physical Exam - Reviewed Nursing Documentation Reviewed: Yes Vital Signs Reviewed: Yes - Physical Exam Appears: Positive for: Well, Non-toxic, No Acute Distress Head Exam: Positive for: ATRAUMATIC, NORMAL INSPECTION, NORMOCEPHALIC Skin: Positive for: Normal Color, Warm. Negative for: Rash Eye Exam: Positive for: EOMI, Normal appearance, PERRL ENT: Positive for: Normal ENT Inspection Neck: Positive for: Normal, Painless ROM Cardiovascular/Chest: Positive for: Regular Rate, Rhythm Respiratory: Positive for: CNT, Normal Breath Sounds Gastrointestinal/Abdominal: Positive for: Normal Exam, Bowel Sounds, Soft. Negative for: Tenderness Back: Positive for: Normal Inspection. Negative for: L CVA Tenderness, R CVA Tenderness Extremity: Positive for: Normal ROM Neurologic/Psych: Positive for: Alert, Oriented - Laboratory Results Result Diagrams: 09/27/16 17:07 09/27/16 17:07 Urine POC: Positive - ECG O2 Sat by Pulse Oximetry: 99 ED OBSERVATION Discharge: Yes Date of observation admission: 09/27/16 Time of observation admission: 16:58 - Observation admission statement Patient is being placed in observation because:: pelvic pain, hyperemesis - Progress Note Progress Note: 09/27/16 16:58 Labs ordered. IV LR bolus x 1, pepcid 20mg IV, reglan 10mg IVPB ordered. 09/27/16 18:57 TVUS: 1. Single intrauterine gestational sac with a MSD of 11 mm and a normal yolk sac. No pole is identified. These findings are suspicious for but not diagnostic of intrauterine failure. Recurrent short term followup imaging as clinically warranted to assess for development of a viable fetus. 2. 10 x 6 x 11 mm heterogeneous focus in the endometrial cavity as described above. A similar finding was described in the pelvis ultrasound report on 06/21/2016. The heterogeneous focus may be a redemonstrated endometrial polyp or submucosal fibroid. Alternatively, this may be a new lesion with the differential diagnosis including but not limited to a partial molar . Follow up per institution protocol. 3. A 2.1 cm mildly heterogeneous right ovarian lesion is most consistent with a hemorrhagic corpus luteal cyst. No evidence of cyst rupture or ovarian torsion. On re-evaluation, pt. reports good relief of nausea and pain. Pending BHCG level and OB consult. 09/27/16 19:57 [facility] [place] [address] Case and diagnostics d/w Dr. Pop, OBGYN partition notcher, who states pt. can be dc' d and a repeat BHCG should be done in 48-72 hours. Pt. informed of results and verbalized understanding. Disposition - Clinical Impression Clinical Impression: Early stage of , Hyperemesis gravidarum - Patient ED Disposition Is Patient to be Admitted: No - Disposition Disposition: Routine/Home Disposition Time: 19:58 Condition: STABLE
[2016-09-27 17:24] LABS: BASO % 0.5 % (0.0-2.0); EOS # 0.1 K/uL (0.0-0.7); EOS % 1.7 % (0.0-4.0); HEMATOCRIT 40.4 % (34.0-47.0); LYMPH # 1.6 K/uL (1.0-4.3); LYMPH % 19.2 % (20.0-40.0); MEAN CORPUSCULAR HEMOGLOBIN 30.4 pg (27.0-31.0); MEAN CORPUSCULAR HGB CONC 33.4 g/dL (33.0-37.0); MEAN PLATELET VOLUME 7.2 fl (7.2-11.7); MONO # 0.4 K/uL (0.0-0.8); MONO % 5.1 % (0.0-10.0); NEUT # 6.1 K/uL (1.8-7.0); NEUT % 73.5 % (50.0-75.0); RED CELL DISTRIBUTION WIDTH 13.5 % (11.5-14.5); WHITE BLOOD COUNT 8.3 K/uL (4.8-10.8)
[2016-09-27 17:38] LABS: ALB/GLOB RATIO 1.3 (1.0-2.1); ALKALINE PHOSPHATASE 59 U/L (38-126); ALT/SGPT 29 U/L (9-52); AST/SGOT 30 U/L (14-36); BILIRUBIN,TOTAL 0.5 mg/dl (0.2-1.3); BLOOD UREA NITROGEN 9 mg/dl (7-17); CALCIUM 9.4 mg/dL (8.4-10.2); CARBON DIOXIDE 22 mmol/L (22-30); CHLORIDE 106 mmol/L (98-107); GFR AFRICAN-AMERICAN > 60; GLUCOSE,RANDOM 108 mg/dL (65-105); LIPASE 41 U/L (23-300); POTASSIUM 3.6 MMOL/L (3.6-5.0); SODIUM 139 mmol/l (132-148); TOTAL PROTEIN 7.9 G/DL (6.3-8.2)
[2016-09-27] MEDS: Lactated Ringer's 1,000 ML IV SCH ×3 (18:01→21:56)
--- NOTE | 2016-09-28 08:09 | US ---
PROCEDURE: OB Pelvic Ultrasound HISTORY: Pelvic pain COMPARISON: 06/21/2016. FINDINGS: UTERUS: Gestational sac: Single intrauterine gestation. Mean gestational sac diameter measures 11 mm. Yolk sac is visualized. age (Ultrasound estimated): 5 weeks and 2 days. No pole is identified. Bridget-gestational hemorrhage: None. Uterus measures 6.6 x 3.2 x 4.8 cm. Anteverted and normal in size. There is redemonstration of 9 x 5 x 10 mm heterogeneous hypoechoic submucosal lesion with eccentric echogenic foci in the anterior fundus. CERVIX: Long and closed. No cervical abnormality seen. RIGHT OVARY: Measures 3.3 x 2.3 x 4.3 cm. No mass lesion. Normal flow. There is a 1.7 x 1.9 x 2.1 cm hemorrhagic/complicated cyst in the right ovary. LEFT OVARY: Measures 3.8 x 1.1 x 1.8 cm. No solid mass. Normal flow. FREE FLUID: None. OTHER FINDINGS: None. IMPRESSION: 1. Single intrauterine gestational sac with mean gestational age of 5 weeks and 2 days. Yolk sac is visualized. pole is not identified on the current examination. Clinically follow-up, correlation with beta HCG levels and imaging follow-up is advised. 2. Redemonstration of a 9 x 5 x 10 mm endometrial polyp versus submucosal fibroid in the anterior fundus. A preliminary report was provided by [employer]. .
== END 2016-09-27 19:58 | disposition home or self-care (01) ==
LOC: H.ER 16:05 → H.EROBSV 16:53
PROVIDERS: ADMIT Emergency Medicine; ATTEND Emergency Medicine
DX: O21.0 Mild hyperemesis gravidarum (principal); J45.909 Unspecified asthma, uncomplicated; F32.9 Major depressive disorder, single episode, unspecified; F41.9 Anxiety disorder, unspecified; K29.70 Gastritis, unspecified, without bleeding; Z79.51 Long term (current) use of inhaled steroids
CPT/HCPCS: 36415; 76815; 80053; 81025; 83690; 84702; 85025; 87040; 96361; 96374; 99283; G0378; J2765; J7120

== ENCOUNTER 2016-10-01 22:51 | Emergency (ER) | payer OTHER ==
[2016-10-01 22:58] VITALS: BMI 23.8
[2016-10-01 22:59] VITALS: RESP 16
[2016-10-01] MEDS ORDERED: Lactated Ringer's 1,000 ML IV STA (23:08)
[2016-10-01 23:42] LABS: BASO % 0.5 % (0.0-2.0); EOS # 0.2 K/uL (0.0-0.7); EOS % 2.1 % (0.0-4.0); HEMATOCRIT 39.8 % (34.0-47.0); LYMPH # 2.1 K/uL (1.0-4.3); LYMPH % 24.4 % (20.0-40.0); MEAN CELL VOLUME 90.9 fl (81.0-99.0); MEAN CORPUSCULAR HEMOGLOBIN 30.7 pg (27.0-31.0); MEAN CORPUSCULAR HGB CONC 33.8 g/dL (33.0-37.0); MEAN PLATELET VOLUME 7.1 fl (7.2-11.7); MONO # 0.6 K/uL (0.0-0.8); MONO % 7.3 % (0.0-10.0); NEUT # 5.7 K/uL (1.8-7.0); NEUT % 65.7 % (50.0-75.0); NRBC % 0.3 % (0.0-0.0); WHITE BLOOD COUNT 8.7 K/uL (4.8-10.8)
--- NOTE | 2016-10-01 23:52 | ED PDOC ---
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 Patient states that the blood is similar to the blood present at the start of her period. (+) cramping suprapubic pain, nausea, and vomiting. Patient was seen here x4 adys ago for suprapubic cramping and vomiting. Patient was discharge with advice to come back in 48-72 hours for re-evaluation. Patient states that she has an appointment with her LINER WORKER tomorrow, but due to the vaginal bleeding she presented to the ED. PCP: Dr. Schwartz Abnormal Vaginal Bleeding: Yes Last Menstral Period: August 08 2016 : 1 Para: 0 Past Medical History Reviewed: Historical Data, Nursing Documentation, Vital Signs Vital Signs: Last Vital Signs Temp 98.9 F 10/01/16 22:57 Pulse 89 10/01/16 22:57 Resp 16 10/01/16 22:57 BP 128/78 10/01/16 22:57 Pulse Ox 99 10/01/16 22:57 - Medical History PMH: Anxiety, Asthma, Depression, Gastritis Denies: Diabetes, Hepatitis, HIV, HTN, Chronic Kidney Disease, Seizures, Sexually Transmitted Disease - Surgical History Surgical History: No Surg Hx - Family History Family History: States: No Known Family Hx - Home Medications Home Medications: Ambulatory Orders Medication Instructions Recorded Budesonide/Formoterol Fumarate 1 puff PO DAILY 06/21/16 [Symbicort 160-4.5 Mcg Inhaler] Ethinyl Estradiol/Drospirenone 1 tab PO DAILY 06/21/16 [Aleshia 28 Tablet] Pantoprazole [Protonix] 40 mg PO DAILY #30 ect 06/23/16 Doxylamine/Pyridoxine HCl (B6) 1 - 2 tab PO HS PRN #30 tablet. 09/27/16 [Garcia Hutchinson 10-10 mg Tablet] Multivit/Folic Acid/I 1 tab PO DAILY #30 tab 09/27/16 [ Plus] - Allergies Allergies/Adverse Reactions: Allergies Allergy/AdvReac Type Severity Reaction Status Date / Time avocado Allergy RASH Verified 06/20/16 21:14 fresh fruit Allergy SWELLING Uncoded 06/21/16 13:29 Review of Systems ROS Statement: Except As Marked, All Systems Reviewed And Found Negative Gastrointestinal: Positive for: Nausea, Vomiting, Abdominal Pain (cramping suprapubic pain) Genitourinary Female: Positive for: Vaginal Bleeding Physical Exam - Reviewed Nursing Documentation Reviewed: Yes Vital Signs Reviewed: Yes - Physical Exam Appears: Positive for: Well, Non-toxic, No Acute Distress Head Exam: Positive for: ATRAUMATIC Skin: Positive for: Normal Color, Warm, Dry Eye Exam: Positive for: Normal appearance, EOMI, PERRL ENT: Positive for: Normal ENT Inspection Neck: Positive for: Normal Cardiovascular/Chest: Positive for: Regular Rate, Rhythm Respiratory: Positive for: Normal Breath Sounds. Negative for: Respiratory Distress Gastrointestinal/Abdominal: Positive for: Soft, Tenderness (mild suprapubic TTP) Pelvic Exam: Positive for: External Exam Normal, Blood (Moderate blood in canal from cervix), Other (RN: LAWRENCE Ge). Negative for: Tender W/Cervical Motion , Tender Adnexa Back: Positive for: Normal Inspection Extremity: Positive for: Normal ROM. Negative for: Deformity Neurologic/Psych: Positive for: Alert, Oriented. Negative for: Motor/Sensory Deficits - Laboratory Results Result Diagrams: 10/01/16 23:39 10/01/16 23:39 - ECG O2 Sat by Pulse Oximetry: 99 (RA) Pulse Ox Interpretation: Normal Medical Decision Making Medical Decision Makin Initial impression: vaginal bleeding, suprapubic pain, and DDx: (not limited to) threatened miscarriage, ectopic Initial plan: * T&S * BETA HCG QUANT * Labs * Lactated Ringers * Reglan 10mg IV * US OB TRANSVAGINAL * Re-eval Previous US demonstrated gestational sac and yolk sac, no pole Previous BETA: [id number] 7weeks 5 day 0000 Patient signed out to Dr. Qiu pending labs and US. Scribe Attestation: Documented by Ana Menchaca acting as a scribe for Cony Dai MD. MD Aguilar Attestation: All medical record entries made by the Jeff were at my direction and personally dictated by me. I have reviewed the chart and agree that the record accurately reflects my personal performance of the history, physical exam, medical decision making, and the department course for this patient. I have also personally directed, reviewed, and agree with the discharge instructions and disposition. Disposition - Clinical Impression Clinical Impression: Subchorionic bleed - Patient ED Disposition Is Patient to be Admitted: No - Disposition Referrals: [facility] [Outside] Disposition: Transfer of Care Disposition Time: 00:00 Condition: STABLE Instructions: Subchorionic Hemorrhage (ED) Forms: [employer] (Beijing) [employer] (Arabic) Patient Signed Over To: Alexis Qiu Handoff Comments: Pending labs and US - POA Present On Arrival: None
[2016-10-01 23:54] LABS: ALB/GLOB RATIO 1.3 (1.0-2.1); ALKALINE PHOSPHATASE 66 U/L (38-126); ALT/SGPT 35 U/L (9-52); AST/SGOT 22 U/L (14-36); BILIRUBIN,TOTAL 0.3 mg/dl (0.2-1.3); BLOOD UREA NITROGEN 9 mg/dl (7-17); CALCIUM 9.4 mg/dL (8.4-10.2); CARBON DIOXIDE 23 mmol/L (22-30); CHLORIDE 103 mmol/L (98-107); GFR AFRICAN-AMERICAN > 60; GLUCOSE,RANDOM 105 mg/dL (65-105); POTASSIUM 3.6 MMOL/L (3.6-5.0); SODIUM 137 mmol/l (132-148); TOTAL PROTEIN 7.9 G/DL (6.3-8.2)
--- NOTE | 2016-10-02 00:37 | ED PDOC ---
- Laboratory Results Result Diagrams: 10/01/16 23:39 10/01/16 23:39 - ECG O2 Sat by Pulse Oximetry: 99 (RA) Medical Decision Making Medical Decision Makin Patient signed out to me from Dr. Dai pending labs and US. 0045 US FINDINGS The uterus contains a gestational sac. A yolk sac is identified. A pole is identified. Measurements correlate with a mean gestational age of 5 weeks and 6 days Embryonic/ cardiac activity is identified at a rate of 99 beats per minute. There is a 1 x 1.2 x 0.8 cm amount of subchorionic blood. The left ovary is normal. There is a 2 x 1.5 cm nodule in the right ovary, probably a corpus luteum. There are no adnexal masses. There is no free pelvic fluid. IMPRESSION: 1. Live intrauterine . 2. There is a small amount of subchorionic blood. 3. There is a 2 x 1.5 cm nodule in the right ovary, probably a corpus luteum. 0136 Labs reviewed: BETA HCG increased and is consistent with patient's Patient is stable for discharge home. Results explained at length to patient. 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 Scribe Attestation: Documented by Ana Menchaca acting as a scribe for Alexis Qiu MD. Scribe Attestation: All medical record entries made by the Scribe were at my direction and personally dictated by me. I have reviewed the chart and agree that the record accurately reflects my personal performance of the history, physical exam, medical decision making, and the department course for this patient. I have also personally directed, reviewed, and agree with the discharge instructions and disposition. Disposition - Clinical Impression Clinical Impression: Subchorionic bleed - POA Present On Arrival: None - Disposition [facility]] Disposition: Routine/Home Disposition Time: 01:36 Condition: STABLE Instructions: Subchorionic Hemorrhage (ED) Forms: [employer] (Hebrew)
[2016-10-02 01:47] VITALS: BP 122/78; PULSE 82; TEMP 98.2
[2016-10-02 14:14] VITALS: O2SAT 99
--- NOTE | 2016-10-02 17:02 | US ---
Indication: vaginal bleeding and preg Comparison: Limited OB ultrasound performed 09/27/16 Technique: Ob transvaginal ultrasound Findings: The uterus measures approximately 7.1 x 3.2 x 3.6 cm. Anteverted. There is a single intrauterine fetus present. 4 mm yolk sac. The gestational sac measures 1.7 cm and is compatible with a gestational age of 6 weeks 0 days. The crown-rump length measures 0.3 cm and is compatible with a gestational age of 5 weeks 6 days. There is heart motion which measured 99.2 BPM. 1.1 x 0.5 x 1.0 cm subchorionic hemorrhage. The right ovary measures 3.5 x 4.6 x 1.7 cm. 2 x 1.5 cm probable right corpus luteal cyst. The left ovary measures 3.8 x 2.6 x 1.2 cm. Blood flow was demonstrated to both ovaries. Impression: Live single intrauterine with estimated gestational age 6 weeks 0 days by gestational sac calculation and 5 weeks 6 days by crown-rump length calculation. heart rate 99.2 bpm. Previously demonstrated endometrial polyp versus submucosal fibroid is not well appreciated on the limited submitted views. Small subchorionic hemorrhage. Probable 2 cm corpus luteal cyst on the right. Preliminary impression was provided by virtual radiologic. Advise an anomaly screen at 16-18 weeks gestational age
== END 2016-10-02 01:47 | disposition home or self-care (01) ==
LOC: H.ER 22:51
DX: O20.8 Other hemorrhage in early pregnancy (principal); O20.9 Hemorrhage in early pregnancy, unspecified; Z3A.01 Less than 8 weeks gestation of pregnancy; J45.909 Unspecified asthma, uncomplicated; Z86.59 Personal history of other mental and behavioral disorders
CPT/HCPCS: 76817; 80053; 84702; 85025; 86850; 86900; 96374; 99283; J2765; J7120

== ENCOUNTER 2017-01-14 21:42 | Emergency (ER) | payer OTHER ==
[2017-01-14 22:53] VITALS: BMI 24.7
[2017-01-14] MEDS ORDERED: Lactated Ringer's 500 ML IV SCH (23:00)
[2017-01-15 00:13] LABS: BASO % 0.3 % (0.0-2.0); EOS # 0.2 K/uL (0.0-0.7); EOS % 1.4 % (0.0-4.0); HEMATOCRIT 33.5 % (34.0-47.0); LYMPH # 1.3 K/uL (1.0-4.3); LYMPH % 12.4 % (20.0-40.0); MEAN CELL VOLUME 91.3 fl (81.0-99.0); MEAN CORPUSCULAR HEMOGLOBIN 30.1 pg (27.0-31.0); MEAN CORPUSCULAR HGB CONC 32.9 g/dL (33.0-37.0); MEAN PLATELET VOLUME 6.8 fl (7.2-11.7); MONO # 0.5 K/uL (0.0-0.8); MONO % 4.3 % (0.0-10.0); NEUT # 8.6 K/uL (1.8-7.0); NEUT % 81.6 % (50.0-75.0); RED CELL DISTRIBUTION WIDTH 13.6 % (11.5-14.5); WHITE BLOOD COUNT 10.5 K/uL (4.8-10.8)
[2017-01-15 00:22] LABS: AMYLASE 113 U/L (30-110); BLOOD UREA NITROGEN 8 mg/dl (7-17); CALCIUM 8.2 mg/dL (8.4-10.2); CARBON DIOXIDE 22 mmol/L (22-30); CHLORIDE 105 mmol/L (98-107); GFR AFRICAN-AMERICAN > 60; GLUCOSE,RANDOM 79 mg/dL (65-105); LIPASE 70 U/L (23-300); POTASSIUM 3.2 MMOL/L (3.6-5.0); SODIUM 136 mmol/l (132-148)
[2017-01-15 00:24] LABS: RBC URINE 2 /hpf (0-3); URINE BACTERIA MOD (<OCC); URINE BILIRUBIN NEGATIVE (NEGATIVE); URINE BLOOD NEGATIVE (NEGATIVE); URINE COLOR YELLOW (YELLOW); URINE GLUCOSE (UA) NEG (Normal); URINE KETONE NEGATIVE (NEGATIVE); URINE LEUKOCYTE ESTERASE NEG Leu/uL (Negative); URINE PROTEIN 30 mg/dL (NEGATIVE); URINE UROBILINOGEN 0.2-1.0 mg/dL (0.2-1.0); WBC URINE 2 /hpf (0-5)
--- NOTE | 2017-01-15 01:47 | OBHP ---
Datetime: 01/14/2017 22:36 IP Adm Impression: , intrauterine IP Admit Plan: Observation/Evaluation Admit Comment, IP Provider: 26 yo at 20 weeks 6 days GA via 1st trimester US, not consistent w/ LMP of 08/12/16, EDC 05/28/16 presents to [facility] c/o multiple episodes (13x) of NBNB vomiting since wakin g up this morning. Pt reports she has vomiting x 4 every day but for last few days, nausea and vomit ing is getting worse. Pt reports she had rice, brocolli, crackers and gatorade this evening but unabl e to tolerate. Denies eating unusual food or recent travel. Denies sick contact. Pt goes to [facility], sees Dr. Zamora. Pt reports she was given an antiemetic by Dr. Joya but never picked it up [facility] pharmacy( unable to recall the name of medication). Denies CTX or VB. Reports +fm. Denies abdominal pain, diarrhea, dysuria, itching, headache, dizziness, chest pain, fever or chills. PNC: [facility], Dr. Joya, missed last appointment yesterday. Has level II US scheduled on . PNL: not available. Neg as per pt. 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 Denies hx STI Past mhx: asthma, anxiety, gastritis( had EGD many yrs ago, not currently on any meds), sciatica. Past shx: denies Social Hx: smoked marijuana 5 weeks ago, Denies EtOH use, cigarettes smoking or other drug uses. Past FH: maternal grandfather had stomach CA, Father: DMII. Medications: PNV, symbicort, ventolin prn Allergies: Apple/Avocados. Assessment: 26 yo IUP @ 20 weeks 6 days GA, hyperemesis gravidarum Plan: continuous heart tracing IV fluid IV zofran cbc bmp amylase UA Case discussed and examined w/ on-call OB hospitalist Dr. Connie Coreas, PGY1 Addendum: Pt is feeling significantly better after IV bolus and zofran. Nausea and vomiting have subsided. UA shows no ketones BMP: K+ 3.2. Advised pt to eat bananas. Amylase 113. 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 Pt has appointment Dr. Joya today at 12:30 pm. labor precaution and [facility] precaution given. Pt's questions and concerns were answered. Case d/w w/ on-call OB hospitalist Dr. Connie Coreas, PGY1 Extremities - PN: Normal Abdomen - PN: Normal Back - PN: Normal Lungs - PN: Normal Heart - PN: Normal Neurologic - PN: Normal HEENT - PN: Normal General - PN: Normal FHR - Baseline A Provider: 150's Comments, ACOG Physical Exam: Abdomen: hyperactive BS. No tenderness, guarding or rebound tenderness . IP Hx Assessment: No Care available at this visit Vital Signs Provider: Reviewed Vital Signs Provider Details: slight tachy IP Chief Complaint: Maternal discomfort; Other NICHD Variability Prov Fetus A: Moderate 6-25bpm NICHD Accel Fetus A IP Provider: 10X10 FHR Category Provider Fetus A: Category I
[2017-01-15 08:54] VITALS: BP 115/56; PULSE 105
== END 2017-01-15 01:45 | disposition home or self-care (01) ==
LOC: H.EROB2 21:42
DX: O21.2 Late vomiting of pregnancy (principal); Z3A.20 20 weeks gestation of pregnancy
CPT/HCPCS: 80048; 81003; 82150; 83690; 85025; 96374; 99283; J2405; J7120

== ENCOUNTER 2018-05-30 20:20 | Emergency (ER) | payer OTHER ==
[2018-05-30 20:20] VITALS: BMI 24.7
[2018-05-30 20:34] VITALS: BP 128/87; PULSE 90; RESP 16; TEMP 98.5; O2SAT 99
--- NOTE | 2018-05-30 21:29 | ED PDOC ---
Lower Extremity Pain/Injury Time Seen by Provider: 05/30/18 20:42 Chief Complaint (Nursing): Lower Extremity Problem/Injury Chief Complaint (Provider): Left Foot Pain History Per: Patient History/Exam Limitations: no limitations Onset/Duration Of Symptoms: Hrs (earlier this morning) Current Symptoms Are (Timing): Still Present Additional Complaint(s): 27 year old female presents to the ED for evaluation of left foot pain s/p accidentally falling down approximately six stairs earlier this morning while carrying a playpen. She notes that she has sciatica and usually cannot feel pain to her left foot, but feels sharp constant pain ever since falling and getting the foot stuck in the railing of the stairs. Denies numbness, tingling, head injury, other injury, and loss of consciousness. Did not take any pain medications prior to arrival. PMD: Zhanna Schwartz Past Medical History Reviewed: Historical Data, Nursing Documentation, Vital Signs Vital Signs: Last Vital Signs Temp 98.5 F 05/30/18 20:32 Pulse 90 05/30/18 20:32 Resp 16 05/30/18 20:32 BP 128/87 05/30/18 20:32 Pulse Ox 99 05/30/18 20:32 - Medical History PMH: Anxiety, Asthma, Back Problems (sciatica), Depression, Gastritis Denies: Diabetes, Hepatitis, HIV, HTN, Chronic Kidney Disease, Seizures, Sexually Transmitted Disease - Surgical History Surgical History: No Surg Hx - Family History Family History: States: Unknown Family Hx - Social History Current smoker - smoking cessation education provided: Yes (light) Alcohol: None Drugs: Denies - Home Medications Home Medications: Ambulatory Orders Medication Instructions Recorded Budesonide/Formoterol Fumarate 1 puff PO DAILY 06/21/16 [Symbicort 160-4.5 Mcg Inhaler] Ethinyl Estradiol/Drospirenone 1 tab PO DAILY 06/21/16 [Aleshia 28 Tablet] Pantoprazole [Protonix] 40 mg PO DAILY #30 ect 06/23/16 Doxylamine/Pyridoxine HCl (B6) 1 - 2 tab PO HS PRN #30 tablet. 09/27/16 [Garcia Hutchinson 10-10 mg Tablet] Multivit/Folic Acid/I 1 tab PO DAILY #30 tab 09/27/16 [ Plus] Ibuprofen [Motrin Tab] 600 mg PO Q6 PRN #20 tab 05/30/18 - Allergies Allergies/Adverse Reactions: Allergies Allergy/AdvReac Type Severity Reaction Status Date / Time No Known Allergies Allergy Verified 05/30/18 20:32 Review of Systems ROS Statement: Except As Marked, All Systems Reviewed And Found Negative Musculoskeletal: Positive for: Foot Pain (left) Neurological: Negative for: Numbness (or tingling) Physical Exam - Reviewed Nursing Documentation Reviewed: Yes Vital Signs Reviewed: Yes - Physical Exam Comments: GENERAL APPEARANCE: Patient is awake, alert, oriented x 3, in no acute distress. SKIN: Warm, dry; (-) cyanosis. LEFT LOWER EXTREMITY: (+) tenderness, ecchymosis, moderate swelling to 4th toe. 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 No medial or lateral malleolus tenderness. Remainder of LE: (-) injury. Capillary refill less than 2 seconds. CARDIOVASCULAR: (+) distal pulse. NEUROLOGIC: (+) distal sensation. - ECG O2 Sat by Pulse Oximetry: 99 (RA) Pulse Ox Interpretation: Normal Medical Decision Making Medical Decision Making: Initial Impression: left foot pain, r/o fracture Time: 2050 Initial Plan: --Ibuprofen 600mg PO --Left foot XR 2114 XRs read by me as baseline shortened 4th metatarsal and no acute fracture or dislocation. Spoke with podiatry who reviewed XRs and agreed with my read, recommending a surgical shoe and follow up in their office a week from now. Discussed results, diagnosis, treatment, return precautions and f/u with pt who is understanding, in agreement and stable for dc Scribe Attestation: Documented by Carly Stapleton acting as a scribe for Abelardo Spears PA-C. Provider Scribe Attestation: All medical record entries made by the Scribe were at my direction and personally dictated by me. I have reviewed the chart and agree that the record accurately reflects my personal performance of the history, physical exam, medical decision making, and the department course for this patient. I have also personally directed, reviewed, and agree with the discharge instructions and disposition. Disposition - Clinical Impression Clinical Impression: Contusion of toe of left foot, Sprain of foot, left, Sprain of toe, fourth, left - Patient ED Disposition Is Patient to be Admitted: No Counseled Patient/Family Regarding: Studies Performed, Diagnosis, Need For Followup, Rx Given - Disposition Referrals: Podiatry Clinic [Outside] Romeo Duncan DPM [[facility] Pod[facility]] - Disposition: Routine/Home Disposition Time: 21:23 Condition: IMPROVED Additional Instructions: Thank you for letting us take care of you today. You were treated for sprained foot/toe. Rest, ice and elevate foot. Wear hard shoe for support. Take Ibuprofen for pain. Follow up with the podiatry clinic or doctor as listed in 1 wk. The emergency medical care you received today was directed at your acute symptoms. If you were prescribed any medication, please fill it and take as directed. It may take several days for your symptoms to resolve. Return to the Emergency Department if your symptoms worsen, do not improve, or if you have any other problems. Please contact your doctor in 2 days for re-evaluation and follow up / or call one of the physicians/clinics you have been referred to that are listed on the Patient Visit Information form that is included in your discharge packet. Bring any paperwork you were given at discharge with you along with any medications you are taking to your follow up visit. Our treatment cannot replace ongoing medical care by a primary care provider (PCP) outside of the emergency depart ment. Prescriptions: Ibuprofen [Motrin Tab] 600 mg PO Q6 PRN #20 tab PRN Reason: Pain, Moderate (4-7) Instructions: Sprain (DC), Toe Injury Forms: [employer] (Andorran), [facility] ED School/Work Excuse Print Language: ECUADOREAN - POA Present On Arrival: Falls Or Trauma
--- NOTE | 2018-05-31 08:18 | RAD ---
Date of service: 05/30/2018 PROCEDURE: FOURTH DIGIT/LEFT FOOT RADIOGRAPHS HISTORY: fall down stairs COMPARISON: none available. TECHNIQUE: Three views submitted. 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 The 4th digit is partially incorporated into the proximal forefoot due to foreshortening of the 4th metatarsal. No acute fracture is appreciated. No destructive bony lesion identified. Local soft tissues appear diffusely unremarkable. IMPRESSION: No acute fracture or dislocation throughout the left foot. Foreshortening of the left 4th metatarsal bone is appreciated with 4th digit partially incorporated into proximal forefoot. 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 Clinically correlate.
== END 2018-05-30 21:46 | disposition home or self-care (01) ==
LOC: H.ER 20:20
DX: S93.505A Unspecified sprain of left lesser toe(s), initial encounter (principal); W10.9XXA Fall (on) (from) unspecified stairs and steps, initial encounter; Y92.89 Other specified places as the place of occurrence of the external cause